=== PATIENT | male | born 1970 | race Caucasian/White ===

== ENCOUNTER → 2019-05-25 | Outpatient (CLI) | payer OTHER | LOC: EDSTATUS 10:22 → LAB 12:10 | DX: R07.9 Chest pain, unspecified (principal) ==

== ENCOUNTER → 2019-07-21 | Outpatient (CLI) | payer OTHER ==
[2019-07-21 10:45] LABS: ALT/SGPT 39 U/L (0-55); AST-SGOT 16 U/L (5-34)
== END ==
LOC: LAB 09:56
PROVIDERS: Family Medicine
DX: M79.10 Myalgia, unspecified site (principal); R74.8 Abnormal levels of other serum enzymes

== ENCOUNTER 2021-02-21 09:53 | Outpatient (RCR) | payer OTHER | END 2021-04-04 17:00 | disposition still patient (30) | LOC: OT 09:53 | DX: G56.01 Carpal tunnel syndrome, right upper limb (principal) ==

== ENCOUNTER → 2024-10-22 | Outpatient (CLI) | payer BC | LOC: RAD 16:30 | DX: M25.521 Pain in right elbow (principal) ==